=== PATIENT | male | born 1940 | race Caucasian/White ===

== ENCOUNTER 2016-11-20 23:24 | Observation (INO) | payer MEDICARE, OTHER ==
[~2016-11-20] VITALS: Ht 182.9 cm; Wt 78.0 kg
[2016-11-20 23:31] VITALS: BP 159/98; PULSE 118; RESP 20; O2SAT 97
--- NOTE | 2016-11-20 23:43 | ED.REPORT ---
HPI- Male Date of Service Nov 20, 2016 ED Provider: Manan Stokes MD Pt is a 76 year old male with a history of hyperlipidemia and GERD who presents to the ED from [facility] c/o hematuria onset 10 hours ago. He was started on Finasteride for urinary stream difficulties, and now had hematuria today with large clots. Additional symptoms include urinary retention, bladder spasms, and diaphoresis. He denies fever, chills, flank pain, back pain, or rash. Pt denies ever having similar symptoms in the past. Urologist, Dr. Dyer was consulted on this case. Nursing Notes Stated Complaint: ABDOMINAL PAIN Chief Complaint: Male Abdominal Pain Nursing Notes Reviewed: Yes Allergies: Coded Allergies: Contrast Media (Verified Allergy, Severe, Anaphylaxis, 11/20/16) Scheduled Aspirin (Aspirin) 81 Mg Tablet 81 MG PO DAILY Atorvastatin Calcium (Atorvastatin Calcium) 40 Mg Tablet 40 MG PO DAILY Famotidine (Pepcid) 20 Mg Tablet 20 MG PO BID Finasteride (Finasteride) 5 Mg Tablet 5 MG PO DAILY Olmesartan (Benicar) 5 Mg Tablet 5 MG PO DAILY Miscellaneous Medications Calcium Carbonate/Vitamin D3 (Calcium 600 + Vit D3 400 Tab) 600 Mg-400 Tablet 1 EACH PO General Time Seen by MD: 23:42 Chief Complaint Other (Hematuria) Hx Obtained From: Patient, Spouse Arrived By: Walk-in (sent from [facility] ) Onset Occurred: 9 - 12 hours ago Symptom Duration: Constant Quality: Painful Severity: Current: Moderate Severity: Maximum: Severe Recent Healthcare: Recent doctor visit Similar Sx Previous: No Past Medical History Past Medical History Notes: Lives in [place] Past Medical History Reports: GERD, Hyperlipidemia Past Surgical History Reports: Cholecystectomy, Tonsillectomy Social History Other Social History: Good social support, Ambulatory Status Independent Review of Systems Urinary retention Bladder spasms Constitutional: Denies: Chills Male: Reports Hematuria, Denies Flank pain Musculoskeletal: Denies: Back pain Skin: Reports Diaphoresis, Denies Rash Complete sys rev & neg: except as marked. Physical Exam Initial Vital Signs Vital Signs (First) Date Time Temp Pulse Resp B/P Pulse Ox O2 Delivery O2 Flow Rate FiO2 11/20/16 23:31 36.7 118 20 159/98 97 Room Air Initial VS: Reviewed, Vital signs abnormal Head / Eyes: Atraumatic, Normocephalic Neck: Supple, Full range of motion Extremities: Vascular intact, Neuro intact, No swelling, No tenderness Skin: Warm, Dry, No cyanosis Neurologic: Alert, Oriented, Nonfocal Psychiatric: Mood/affect normal, Behavior normal, Normal thought content General/Constitutional: Awake, Alert, Well hydrated Abdomen: Soft Bladder up to umbilicus with tenderness to palpation Respiratory / Chest: Atraumatic, Breath sounds NL, Breath sounds = bilat, No respiratory distress Cardiovascular: Heart rate NL, Regular rhythm, Heart sounds NL Interpretation & Diagnostics Lab Results Interpretation Result Diagram: 11/20/16 0004 11/20/16 0004 Test 11/20/16 00:04 11/21/16 00:04 White Blood Count 12.7th/mm3 (3.8-10.1) Red Blood Count 4.39mil/mm3 (4.40-5.80) Hemoglobin 14.5g/dL (13.8-17.2) Hematocrit 41.1% (41.0-50.0) Mean Corpuscular Volume 93.6fL (81-100) Mean Corpuscular Hemoglobin 33.0pg (27.0-35.0) Mean Corpuscular Hemoglobin Concent 35.3% (32.0-37.0) Red Cell Distribution Width 12.8% (12.3-15.4) Platelet Count 205bil/L (150-400) Neutrophils (%) (Auto) 83.4% (40-74) Lymphocytes (%) (Auto) 11.0% (14-46) Monocytes (%) (Auto) 4.5% (4-12) Eosinophils (%) (Auto) 0.7% (0-5) Basophils (%) (Auto) 0.2% (0-3) Sodium Level 142mEq/L (134-144) Potassium Level 4.6mEq/L (3.5-5.2) Chloride Level 105mEq/L (97-108) Carbon Dioxide Level 18mmol/L (18-29) Blood Urea Nitrogen 24mg/dL (8-27) Creatinine 0.95mg/dL (0.76-1.27) Estimat Glomerular Filtration Rate 82mL/min (>59) Glucose Level 165mg/dL (60-99) Calcium Level 9.4mg/dL (8.5-10.1) Magnesium Level 2.1mg/dL (1.6-2.6) Total Bilirubin 0.5mg/dL (0.0-1.2) Aspartate Amino Transf (AST/SGOT) 26U/L (0-50) Alanine Aminotransferase (ALT/SGPT) 22U/L (0-44) Alkaline Phosphatase 72U/L (25-160) Total Protein 7.4g/dL (6.4-8.4) Albumin 4.6g/dL (3.4-5.0) Hold Arellano Top Tube Received (Received) Re-Eval/Medical Decision Med Decision/Clinical Course 76-year-old male who has prostatic hypertrophy with recurrence after laser TURP. He presented to [facility] with urinary retention. They were unable to pass a catheter through his much enlarged prostate. He was then transferred here. A 16 East Timorese coud was placed and the bladder was drained. The urine remains quite bloody. Dr. Swift was consulted and will come to the emergency room to evaluate the patient for possible larger catheter placement under anesthesia with machine bladder irrigation in the OR. His care is currently being turned over change shift to Dr. Kyle. Source of Hx: Old records Re-Evaluation/Progress : Time of Eval: 00:46 Re-Evaluation/Progress Note: Pt rechecked. Discussed plan to stay in the ED overnight to watch for clots in his roman catheter. Pt understands and agrees with plan. His will stay at [facility]. All questions addressed. Counseled Regarding: Diagnosis, Lab results Discharge & Departure Impression: Primary Impression: Urinary retention Additional Impression: Prostatic hypertrophy Discharge Condition All VS Reviewed: Yes Condition: Stable Scribe Attestation Portions of this note were transcribed by Susan Weiss. I, Dr. Stokes, personally performed the history, physical exam and medical decision-making; I reviewed and confirmed the accuracy of the information in the transcribed note. Manan Stokes MD Nov 20, 2016 23:43 Susan Weiss Nov 20, 2016 23:45
[2016-11-20] MEDS ORDERED: HYDROmorphone 0.5 mg/0.5 mL iSecure Syringe IVPUSH PRN (23:50)
[2016-11-21] VITALS (14 sets, daily range): BP systolic 111–134; BP diastolic 47–80; PULSE 57–83; RESP 10–20; O2SAT 94–100
[2016-11-21 00:08] LABS: BASOPHILS % (AUTO) 0.2 % (0-3); EOSINOPHILS % (AUTO) 0.7 % (0-5); MONOCYTES % (AUTO) 4.5 % (4-12); Mean Corpuscular Volume 93.6 fL (81-100); NEUTROPHILS % (AUTO) 83.4 % (40-74); Platelet Count 205 bil/L (150-400)
[2016-11-21 00:31] LABS: Magnesium 2.1 mg/dL (1.6-2.6)
[2016-11-21] MEDS ORDERED: ATOR40TA69 PO (01:02)
[2016-11-21] MEDS ORDERED: ASPI-973 PO (01:02)
[2016-11-21] MEDS ORDERED: FINA5TAB9 PO (01:02)
[2016-11-21] MEDS ORDERED: OLME5TAB3 PO (01:02)
[2016-11-21] MEDS ORDERED: CALC-1034 PO (01:02)
[2016-11-21] MEDS ORDERED: FAMO20T PO (01:02)
[2016-11-21] MEDS ORDERED: Phenazopyridine 97.5 mg Tablet PO ONE (01:10)
[2016-11-21] MEDS ORDERED: Ondansetron 2 mg/mL 2 mL Inj IVPUSH PRN ×3 (07:35→20:10)
[2016-11-21] MEDS ORDERED: diphenhydrAMINE 25 mg Capsule PO PRN ×2 (07:35→20:10)
[2016-11-21] MEDS ORDERED: Ketorolac 15 mg/mL Inj IVPUSH PRN ×2 (07:35→20:10)
[2016-11-21] MEDS ORDERED: Polyethylene Glycol (PEG) 17 Gm Powder PO PRN ×2 (07:35→20:10)
[2016-11-21] MEDS ORDERED: Acetaminophen IV 1,000 MG in IV Premix 1 EACH IV PRN ×2 (07:35→20:10)
[2016-11-21] MEDS ORDERED: MetoCLOpramide 5 mg/mL 2 mL Inj IVPUSH PRN ×3 (07:35→20:10)
[2016-11-21] MEDS ORDERED: Lactated Ringer's 1,000 ML IV SCH ×2 (07:35→17:06)
[2016-11-21] MEDS ORDERED: OLME40TA18 PO (08:45)
[2016-11-21] MEDS ORDERED: MAGN100T6 PO (08:45)
[2016-11-21] MEDS ORDERED: MULT1CAP33 PO (08:46)
[2016-11-21] MEDS ORDERED: CeFAZolin Inj 2 GM in IV Premix 1 EACH IV ONE (09:04)
--- NOTE | 2016-11-21 09:04 | HP ---
[address] [address] HISTORY AND PHYSICAL PATIENT: EKATERINA NUGENT : 1940 MR#: [id number] ADMIT: 11/21/2016 JOB ID: [id number] ADMITTING DIAGNOSIS: 1. Gross hematuria. 2. Clot retention. HISTORY: The patient is a very pleasant 76-year-old gentleman visiting from [place], [place], who was experiencing his usual health until yesterday when he passed two sizable clots. He had no further issues until about 7:30 last evening when he could no longer urinate. He presented to [facility]. I was called and subsequently he was transferred by private vehicle (his ) to [facility] emergency department, whereupon a 16-Guyanese Kramer catheter with subsequent adequate drainage. Imaging at [facility] revealed layering of a large amount of clot within the bladder. He is currently reasonably comfortable in comparison. He has an established urologist in [place], [place]. He is 8-10 years status post laser prostate resection. He had a bit of bleeding last year. It was transient. His urologist told him he had some small stones in his bladder. They were not removed. ALLERGIES: 40 years ago he had IV CONTRAST allergy. He has had a contrast dye since then with Tylenol and Benadryl without issue. SCHEDULED MEDICATIONS: 1. Aspirin 81 mg daily. 2. Lipitor 20 mg daily. 3. Calcium carbonate/vitamin D3, 500 units/200 units daily. 4. Pepcid AC 10 mg daily. 5. Finasteride 5 mg daily. 6. Magnesium citrate 1 p.o. daily for leg cramps. SOCIAL HISTORY: , supportive family. He is retired. Nonsmoker and never has. Social alcohol use. REVIEW OF SYSTEMS: Noncontributory. PHYSICAL EXAMINATION: Afebrile. Vital signs stable. He is resting comfortably in bed currently. Head and neck examination: Remarkable only for eye glass wear. Neck is supple. No JVD or adenopathy. Chest clear and equal bilaterally. Heart rate is regular. No murmurs or extra tones. Abdomen is protuberant, soft, nontender. Bladder is not palpable. External genitalia, Kramer indwelling with maroon outflow. Extremities: No pallor, edema, clubbing or cyanosis. Pulses are palpable in all four. IMPRESSION: 1. Gross hematuria. 2. Clot retention. 3. History of bladder stones and BPH. PLAN/DISCUSSION: Informed consent and scheduling today for urgent cystoscopy, clot evacuation. Possible bladder stone removal. Possible transurethral resection of the prostate.
--- NOTE | 2016-11-21 14:38 | NUR ---
Case Management- MATOS explained and signed/timed by patient. Copy given to patient and original placed in chart. Bethany Quiñones RN, CCM
--- NOTE | 2016-11-21 15:32 | NUR ---
TO OR Pt to Or at 1530. Alert, awake, oriented, in no acute distress. Pt is SL and IV Tylenol sent with OR team. Kramer catheter in place, draining bloody urine.
[2016-11-21] MEDS ORDERED: CeFAZolin 2 Gm/50 mL D5W Duplex Bag IV ONE (15:43)
[2016-11-21] MEDS: Acetaminophen IV 1,000 MG in IV Premix 1 EACH IV ONE (15:45)
[2016-11-21] MEDS ORDERED: Lactated Ringer's 1,000 ML IV ONE (15:45)
[2016-11-21] MEDS ORDERED: fentaNYL-PF 50 mCg/mL 2 mL Inj ONE (15:56)
[2016-11-21] MEDS ORDERED: Ondansetron 2 mg/mL 2 mL Inj ONE (15:56)
[2016-11-21] MEDS ORDERED: Phenylephrine/NS 100 mCg/mL 10 mL Syringe IVPUSH ONE (15:56)
[2016-11-21] MEDS ORDERED: Glycopyrrolate 0.2 MG/ML 1mL Inj ONE (15:56)
[2016-11-21] MEDS ORDERED: Dexamethasone 4 mg/mL Inj ONE (15:56)
[2016-11-21] MEDS ORDERED: Propofol 10,000 mCg/mL 20 mL Inj ONE (15:56)
[2016-11-21] MEDS ORDERED: EPHEDrine/NS 5 mg/mL 5 mL Syringe ONE (15:56)
[2016-11-21] MEDS ORDERED: Belladonna Alk-Opium 60 mg Rectal Suppository RECTAL ONE ×2 (16:46→19:25)
--- NOTE | 2016-11-21 17:04 | PCM.HPANE ---
Patient Data Date of Service: Nov 21, 2016 Surgeon Admitting Provider:Angel Dyer MD Attending Provider:Angel Dyer MD Primary Care Physician:Nopcp Other Provider: Reason for Visit Abdominal Pain Ht/WT & BMI Height (Feet): 6 Height (Inches): 0.00 Weight (Kilograms): 78.000 Body Mass Index 23.29 Allergies Coded Allergies: Contrast Media (Verified Allergy, Severe, Anaphylaxis, 11/21/16) Past Anesthesia History Anesthesia History: Denies:: Abnormal Airway Diabetes History Hx Diabetes?: No MRSA MRSA: No Medications Hypertension Medication: No Home Meds Incl Beta Renu: No Reported Medications Multivitamin (Multivitamins)1 Each Capsule1 Each PO DAILY 11/21/16 Magnesium Citrate 100 Mg [id number] Mg PO DAILY 11/21/16 Olmesartan Medoxomil 40 Mg Uezqyy16 Mg PO HS #90 11/21/16 Finasteride 5 Mg Tablet5 Mg PO HS 30 Days Ref 0 11/21/16 Famotidine (Pepcid)20 Mg Knndoo30 Mg PO HS 11/21/16 Aspirin 81 Mg [id number] Mg PO HS Ref 0 11/21/16 Calcium Carbonate/Vitamin D3 (Calcium 600 + Vit D3 400 Tab)600 Mg-400 Tablet1 Each PO DAILY 11/21/16 Atorvastatin Calcium 40 Mg [id number] Mg PO HS Ref 0 11/21/16 Discontinued Reported Medications Olmesartan (Benicar)5 Mg Tablet5 Mg PO DAILY Ref 0 11/21/16 History History of ENT Problems?: No HEENT History: Denies:: Abnormal Airway Denture Type: None Teeth Condition: Within Normal Limits Hx of Heart Problems?: Yes Cardiovascular History: Positive for:: Hypertension Denies:: Congestive Heart Failure Hx of Respiratory Problem?: No Respiratory History: Denies:: Asthma Tuberculosis Hx Neurologic Problems?: No Neurological History: Denies:: Alzheimer's Disease TIA Hx of GI Problems?: Yes Gastrointestinal History: Positive for:: Gastroesphageal Reflux Hx of Problems?: Yes HX of Peritoneal Dialysis: No Male Hx: Positive for:: Prostate Problems Skin History: Denies:: History Skin Disorders? Hx Musculoskeletal Problems?: No Hx of Psycho/Social Problems?: No Hx Surgeries?: Yes (prostate laser ) Hx Any Other Health Problems?: No History Blood Transfusions: Positive for:: Accept Blood Products? Denies:: Blood Transfusions Hx Diabetes: No Hx Alcohol Use: Yes ("1-2 drinks a day")Hx Substance Use: No Smoking Status: Never Smoker Have You Smoked inLast 12 mo: No Stop/Bang Treated for Sleep Apnea?: No Do You Have a CPAP Machine?: No S-Snoring: Do You Snore Loudly: No T-Tired: feel tired, fatigued: No O-Obsered: Observed not breath: No P-Blood Pressure: treated: Yes B- Body Mass Index > 35 kg/m2: No A- Age over 50: Yes N- Neck Large Circumference: No G- Gender Male: Yes BRENDA Total Score: 2 BRENDA Risk Assessment: Low Risk, <3 Yes Risk Assessment Category Category 1A: Patient has history of documented sleep apnea, and HAS NOT received any narcotic, sedative or anesthesia administration during this stay. Category 1B: Patient has history of documented sleep apnea, and HAS received any narcotic , sedative or anesthesia administration during this stay Category 2: Patient has SUSPECTED Obstructive Sleep Apnea, and HAS received any narcotic , sedative or anesthesia administration during this stay. Category 3: Patient has SUSPECTED Obstructive Sleep Apnea and HAS NOT received narcotic, sedative or anesthesia administration during this stay. Category 4: Outpatient in Procedural Areas with known sleep apnea or who screen positive for High Risk via the STOP/BANG questionnaire. Exam Exam Vital Signs Vital Signs Date Time Temp Pulse Resp B/P Pulse Ox O2 Delivery O2 Flow Rate FiO2 11/21/16 09:29 36.3 57 18 134/80 96 Room Air General Appearance: Alert, Oriented X3 HEENT/AIRWAY: MP 1 Lungs: Clear to Auscultation Heart: Exam Unremarkable Meds/Labs/Diagnostics Admission Meds Current Medications Phenazopyridine HCl (Azo Standard) 2 tab ONCE ONCE PO Last administered on 01:21; Start 11/21/16 at 01:10; Stop 11/21/16 at 01:11; Status DC Oxybutynin Chloride 5 mg 5 mg ONCE ONCE PO Last administered on 11/21/16 01: 21; Start 11/21/16 at 01:10; Stop 11/21/16 at 01:11; Status DC Lactated Ringer's 1,000 ml @ 80 mls/hr [id number] IV Last administered on 08:58; Start 11/21/16 at 07:35 Cefazolin Sodium/ Dextrose 2 gm/ Premix 50 ml @ 100 mls/hr PREOP ONCE IV Last administered on 11/21/16 16:28; Start 11/21/16 at 09:04; Stop 11/21/16 at 09:33; Status DC Acetaminophen 1000 mg/Premix 100 ml @ 400 mls/hr PREOP ONCE IV Last administered on 11/21/16 15:45; Start 11/21/16 at 09:06; Stop 11/21/16 at 09:20 ; Status DC Lactated Ringer's (Lr) 1,000 ml @ ud STK-MED ONCE IV Last administered on 11/21 15:45; Start 11/21/16 at 15:45; Stop 11/21/16 at 16:38; Status DC Labs Test 11/20/16 00:04 11/21/16 00:04 White Blood Count 12.7th/mm3 (3.8-10.1) Red Blood Count 4.39mil/mm3 (4.40-5.80) Hemoglobin 14.5g/dL (13.8-17.2) Hematocrit 41.1% (41.0-50.0) Mean Corpuscular Volume 93.6fL (81-100) Mean Corpuscular Hemoglobin 33.0pg (27.0-35.0) Mean Corpuscular Hemoglobin Concent 35.3% (32.0-37.0) Red Cell Distribution Width 12.8% (12.3-15.4) Platelet Count 205bil/L (150-400) Neutrophils (%) (Auto) 83.4% (40-74) Lymphocytes (%) (Auto) 11.0% (14-46) Monocytes (%) (Auto) 4.5% (4-12) Eosinophils (%) (Auto) 0.7% (0-5) Basophils (%) (Auto) 0.2% (0-3) Sodium Level 142mEq/L (134-144) Potassium Level 4.6mEq/L (3.5-5.2) Chloride Level 105mEq/L (97-108) Carbon Dioxide Level 18mmol/L (18-29) Blood Urea Nitrogen 24mg/dL (8-27) Creatinine 0.95mg/dL (0.76-1.27) Estimat Glomerular Filtration Rate 82mL/min (>59) Glucose Level 165mg/dL (60-99) Calcium Level 9.4mg/dL (8.5-10.1) Magnesium Level 2.1mg/dL (1.6-2.6) Total Bilirubin 0.5mg/dL (0.0-1.2) Aspartate Amino Transf (AST/SGOT) 26U/L (0-50) Alanine Aminotransferase (ALT/SGPT) 22U/L (0-44) Alkaline Phosphatase 72U/L (25-160) Total Protein 7.4g/dL (6.4-8.4) Albumin 4.6g/dL (3.4-5.0) Hold Arellano Top Tube Received (Received) Plan Impression Patient chart reviewed, patient interviewed and anesthestic plan with risks, benefits, and alternatives discussed, and informed consent obtained. NPO per Anesth. Guidelines: Yes ASA Physical Status: ASA2 Mod Systemic Disease Anesthetic Plan: GA Bene/Risks/Altern/Consents: Yes HP Complete Prior to Induction: Yes Jf Nunez MD Nov 21, 2016 17:04
[2016-11-21] MEDS ORDERED: Lactated Ringer's 500 ML IV PRN (17:06)
[2016-11-21] MEDS ORDERED: HYDROmorphone 1 mg/mL Inj IVPUSH PRN ×2 (17:10→20:10)
[2016-11-21] MEDS ORDERED: fentaNYL-PF 50 mCg/mL 2 mL Inj IVPUSH PRN (17:10)
[2016-11-21] MEDS ORDERED: Dexamethasone 4 mg/mL Inj IVPUSH PRN (17:10)
[2016-11-21] MEDS ORDERED: EPHEDrine Sulfate 50 mg/mL Inj IVPUSH PRN (17:10)
[2016-11-21] MEDS ORDERED: Phenylephrine 10,000 mCg/mL Inj IVPUSH PRN (17:10)
[2016-11-21 19:59] LABS: Mean Corpuscular Hemoglobin 33.1 pg (27.0-35.0); Mean Corpuscular Volume 95.6 fL (81-100)
[2016-11-21] MEDS ORDERED: Belladonna Alk-Opium 60 mg Rectal Suppository RECTAL PRN (20:10)
--- NOTE | 2016-11-21 20:35 | PCM.ANEP1 ---
Post Anesthesia PACU Phase 1 Assessment Date of Service: Nov 21, 2016 Vital Signs Vital Signs Date Time Temp Pulse Resp B/P Pulse Ox O2 Delivery O2 Flow Rate FiO2 11/21/16 20:15 68 10 121/68 96 Nasal Cannula 2.5 11/21/16 20:10 73 11 120/68 96 Nasal Cannula 2.5 11/21/16 20:05 79 13 123/67 97 Nasal Cannula 2.5 11/21/16 20:00 80 14 121/74 94 Room Air 11/21/16 19:55 36.3 77 13 126/71 100 Simple Mask 10 Anesthetic Administered: GA Level of Alertness: Awake, talking BREWER's with Equal Strength: Yes Pain: No Nausea or Vomiting: No CV Function & Hydration Stable: Yes Airway Device: Oxygen Delivery: Room Air Lungs: Normal Air Movement Dermatome Level: Full Sensation PACU Phase 2 Assessment Complications: No Follow up Care: N/A Patient Instructions Provided: N/A Kayden Lozano MD Nov 21, 2016 20:35
[2016-11-21] MEDS: Lactated Ringer's 1,000 ML IV SCH (20:59)
[2016-11-22 00:34] VITALS: BP 108/64; PULSE 83; RESP 20; O2SAT 94
--- NOTE | 2016-11-22 01:26 | NUR ---
Post op Patient arrived back to floor at 2044. Patient A&OX3. by bedside. Vitals stable. 3 way irrigation patent and draining to gravity. Patient denies pain. Report given by Racheal VALENTIN.
[2016-11-22 02:30] VITALS: BP 102/51; PULSE 71; RESP 18; O2SAT 94
[2016-11-22] MEDS: Lactated Ringer's 1,000 ML IV SCH ×2 (05:09→12:06)
[2016-11-22 06:20] VITALS: BP 100/50; PULSE 67; RESP 18; O2SAT 96
--- NOTE | 2016-11-22 07:58 | NUR ---
Irrigation Patient's urine has been light pink most of shift. toward the very end of shift, urine began to run yellow. 3 way bladder irrigation patent and draining to gravity.
[2016-11-22 09:36] VITALS: BP 110/67; PULSE 66; RESP 18; O2SAT 96
--- NOTE | 2016-11-22 11:55 | NUR ---
Social Work: Initial Assessment/Readiness for Discharge/Multi-Disciplinary Rounds D: EMR reviewed. Please see Initial Assessment linked to this note for more information. Pt is a 76 y/o male admitted Jose - readmit risk score of 1 - for abdominal pain per H&P. Pt's insurance is Medicare and [employer]. PCP is Manan Martinez MD. SW met with pt at bedside to conduct initial assessment. Pt was alert and oriented x3. SW explained role and wrote phone number on white board. SW provided [facility] Discharge Planning Checklist and encouraged pt to contact SW for any discharge planning questions. Pt discussed in multidisciplinary rounds. Pt is not medically stable for discharge at this time, anticipate later today or tomorrow pending Urology. Urology aware that pt lives in [place], [place] and is here visiting with a departure flight home tomorrow at 1300. No SW needs at this time, no MD orders received. SW will continue to follow. Pt lives in [place], [place] and is here visiting his brother in [place] where there are two stairs to enter and 10 stairs to the lower level of the home. Pt has no hx at a SNF or with . Pt does not own or use any DME. Pt drives and ambulates independently. Pt is independent at baseline. Pt reported that she has completed DPOA/advanced directive ppw and SW encouraged pt to provide a copy to the hospital. Pt states Urology is aware of pt's outbound flight back home to [place] tomorrow at 1300 and per pt, Urology will likely discharge pt in time to make flight home and follow-up with PCP in [place]. SW asked if pt had any concerns regarding discharge - pt declined. Pt states his spouse will provide transport at time of discharge. Pt gave verbal consent to contact spouse/DPOA Marino Stefano [phone] for discharge planning. A: Pt who is independent at baseline and has capacity for self-care. P: Pt anticipated to discharge with spouse via POV today or tomorrow - in time to make outbound flight home to [place] at 1300 tomorrow. No other SW needs identified at this time. No other MD orders received. SW will continue to follow. TALIA Hernandez Addendum: 11/22/16 at 1202 by CAMILLE HANNA SS Amended: Links added.
--- NOTE | 2016-11-22 15:05 | DIS ---
[address] [address] DISCHARGE SUMMARY PATIENT: EKATERINA NUGENT : 1940 MR#: [id number] ADMIT: 11/21/2016 JOB ID: [id number] DIS: ADMITTING DIAGNOSES: 1. Gross hematuria. 2. Clot retention. 3. History of bladder calculi. DISCHARGE DIAGNOSES: 1. Gross hematuria. 2. Clot retention. 3. History of bladder calculi. 4. Bladder calculi. PROCEDURE PERFORMED DURING HOSPITALIZATION: 1. Cystoscopy with clot evacuation. 2. Cystoscopy with litholapaxy. 3. Transurethral resection of the prostate (Thunderbeat). HOSPITAL SUMMARY: The patient was admitted in the trader hours of November 21, 2016, after having initially presented to [facility] with the same admitting complaints. They have no urology coverage and I directed ambulatory transfer to [facility] emergency department, whereupon I saw him, assessed the situation, and thereafter scheduled him for urgent cystoscopy, clot evacuation, litholapaxy, and transurethral resection of the prostate. He was taken to the operating room on the afternoon of November 21, 2016. Underwent the same without incident. Pathology is pending at discharge. He is stable on the morning of November 22, 2016. Plug is placed in the inflow and urine remains clear on the outflow. He resides in [place], [place], and will be leaving via correctional airline at 1:30 in the afternoon from [facility] and he will be seeing his primary urologist, Dr. Celestino Israel on November 24, for postop followup and catheter removal and voiding trial. Pathology is pending at discharge. Arrangements will be made for HIPAA release from medical records, transfer to his primary urologist. Prescriptions of oxycodone and Septra are provided, and large and small leg bags are provided with instruction. CC: Celestino Israel MD, [place], [place]
--- NOTE | 2016-11-22 16:00 | NUR ---
DISCHARGE Patient discharged at 1550, left with who will drive him home. Patient denies pain, nausea, and shortness of breath. IV catheter removed intact, personal belongings returned and accounted for, medications reviewed and new Rx provided to patient. Patient has signed release of medical records and notes given to him of hospital stay, more information will be provided by medical records to patient's urologist in [place]. Kramer catheter care and teaching done, leg bag installed, and supplies provided to patient for Kramer care. Patient has appointment for Thursday at his urologist for follow up care.
--- NOTE | 2016-11-22 17:31 | NUR ---
Social Work: Discharge D: EMR reviewed. Pt is on day 1 of hospitalization. Pt discussed in multidisciplinary rounds and is medically stable for discharge home via POV. No SW needs identified, no pt concerns, no MD orders received. A: Pt who is independent at baseline and has capacity for self-care. P: Pt to discharge with spouse via POV today - in time to make outbound flight home to [place] at 1300 tomorrow. Pt does not have any concerns for discharge. No SW needs identified. No MD orders received. SW will continue to follow. TALIA Hernandez
--- NOTE | 2016-11-24 07:27 | OP ---
[address] [address] OPERATIVE REPORT PATIENT: EKATERINA NUGENT : 1940 MR#: [id number] ADMIT: 11/21/2016 JOB ID: [id number] DATE OF SURGERY: 11/21/2016 PREOPERATIVE DIAGNOSIS(ES): 1. Gross hematuria. 2. Clot retention. 3. History of bladder calculi. POSTOPERATIVE DIAGNOSIS(ES): 1. Gross hematuria. 2. Clot retention. 3. History of bladder calculi. OPERATIONS PERFORMED: 1. Cystoscopy. 2. Clot evacuation. 3. Litholapaxy. 4. Transurethral resection of the prostate (Thunderbeat). SURGEON: Angel Dyer MD ANESTHESIOLOGIST: 1. Jf Nunez MD 2. Kayden Lozano MD ANESTHESIA: General. OPERATIVE BLOOD LOSS: 100 mL. Evacuated clot greater than 250 cc. SPECIMEN: Prostate chips submitted to pathology for routine gross and microscopic examination. FINDINGS: Urethra normal. External sphincter intact. Prostate at least 6 cm in length with marked trilobar hyperplasia and innumerable benign mucosal varices. Bladder 2+ trabeculation, with retained clot. There were some stones suspended in clot, others were removed using the loop. There was market intravesical protrusion of the median lobe. Orifices appeared normal bilaterally. PROCEDURE SUMMARY: The patient was positioned supine and was administered general anesthesia. He was then repositioned in semi-lithotomy and the lower abdomen, genitalia, and groin were prepped and draped in sterile fashion. The 25-Anguillan resectoscope was then passed into the lower urinary tract with the findings as described above. The Salmon working element was then fitted with a loop and the organizing clot was mechanically and hydrostatically disrupted in a painstaking manner. Eventually all clot was broken up and evacuated. At this point the prostate, not unexpectedly, was bleeding fairly briskly again. The prostate resection was then commenced. Resection was taken methodically from the bladder neck to the level of just proximal to the verumontanum. There was one small perforation noted at the end of the case at the right distal and lateral prostatic fossa, otherwise resection was generally limited to the level of the surgical capsule. Hemostasis was actively addressed throughout the case and was excellent. All chips were then evacuated or removed mechanically and the loop was exchanged for a button. The button was then used for final hemostasis and touchup resection of any remaining visible adenoma. The bladder was then left partially filled, all instrumentation was removed, and a 24-Anguillan three-way hematuria catheter was inserted. The balloon was inflated to 30 mL and was placed to sterile normal saline continuous bladder irrigation. CC: Dr. Bradley Israel
--- NOTE | 2016-11-24 16:09 | PATH ---
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 Benign urothelial mucosa is also present. ICD10: N40.1 GROSS DESCRIPTION: The specimen is received in formalin, labeled with the patient's name, sublabeled as prostate chips, and consists of multiple fragments of gudino-white rubbery prosthetic tissue (58 g, 9.5 x 8.5 x 2.5 cm in aggregate). Section code: (A-J) prostatic tissue, membership sales representative. 11/23/16 ICD-9 CODES: CPT CODES: 1: 66940 Electronically Signed Out Laura Wellington MD [facility] [address], [place] [address] Technical component performed at [facility], [facility] [address], [address]
== END 2016-11-22 15:57 | disposition home or self-care (01) ==
LOC: SED 11-21 00:07 → OSC 11-21 07:59
PROVIDERS: ADMIT Specialist; ATTEND Specialist
PROC: 0TCB8ZZ Extirpation of Matter from Bladder, Via Natural or Artificial Opening Endoscopic (ICD-10-PCS; 2016-11-21)
PROC: 0VT08ZZ Resection of Prostate, Via Natural or Artificial Opening Endoscopic (ICD-10-PCS; principal; 2016-11-21 14:45)
DX: N40.1 Benign prostatic hyperplasia with lower urinary tract symptoms (principal); R33.8 Other retention of urine; R31.0 Gross hematuria; N32.89 Other specified disorders of bladder; E78.5 Hyperlipidemia, unspecified; K21.9 Gastro-esophageal reflux disease without esophagitis; Z87.442 Personal history of urinary calculi; Z91.041 Radiographic dye allergy status; Z79.82 Long term (current) use of aspirin
CPT/HCPCS: 36415; 52630; 80048; 80053; 83735; 85025; 85027; 88305; 96374; 99285; G0378; J0131; J0690; J1100; J1170; J2175; J2370; J2405; J2704; J3010; J7120